=== PATIENT | female | born 2000 ===

== ENCOUNTER 2025-05-01 11:10 | Emergency (ER) | payer OTHER, SELFPAY ==
--- NOTE | ~2025-05-01 | CT_ITS ---
CT ABDOMEN AND PELVIS WITHOUT CONTRAST Clinical History: right flank pain Comparison: None Technique: Unenhanced axial images lung bases to symphysis pubis Coronal, sagittal reformats CT images acquired with automatic exposure control for dose reduction DLP: 469 mGy-cm Findings: Without intravenous contrast, sensitivity for detecting visceral parenchymal abnormalities decreased. Lung bases: Clear. Visualized heart and pericardium: Unremarkable. Liver: Unremarkable. Gallbladder: Unremarkable. Spleen: Unremarkable. Pancreas: Unremarkable. Adrenal glands: Unremarkable. Kidneys: Right kidney- No hydronephrosis. No renal stones. Left kidney- No hydronephrosis. No renal stones. Distal esophagus/stomach: Unremarkable. Small bowel loops: Normal caliber and wall thickness. Colon: Normal caliber and wall thickness. Normal RLQ appendix. Nodes: No enlarged nodes. A few small lymph nodes right lower quadrant Peritoneum: No ascites. No free intraperitoneal air. Urinary bladder: Unremarkable. Uterus: Unremarkable. Adnexa: Right side 4.5 cm. Bones: No acute bony abnormality. Soft tissues: Unremarkable. Unopacified abdominal aorta: No aneurysmal dilatation. IMPRESSION: 1. No acute findings. 2. Prominent right adnexa. Recommend transvaginal sonography. Reviewed, dictated and finalized at location R. INE OVERHAULER
--- NOTE | ~2025-05-01 | US_ITS ---
EXAM/PROCEDURE: US pelvic complete HISTORY: Prominent right adnexa COMPARISON: CT exam from same date TECHNIQUE: Pelvic ultrasound performed with transabdominal technique. Sonographic windows were limited due to overlying bowel gas. FINDINGS: The uterus measures 5.6 x 2.6 x 4.3 cm and appears normal Endometrial stripe: 4.3 mm Right ovary: 3.8 x 2.3 x 3.9 cm. The right ovary appears normal in echotexture and vascular flow. The left ovary is not visualized No mass or free fluid seen in the images labeled left adnexa. IMPRESSION: 1. No suspicious finding in the right adnexal region. The right ovary appears normal. 2. Nonvisualization of left ovary. Reviewed, dictated and finalized at location A. ASOUND SPECIALIST IMPRESSION: 1. No suspicious finding in the right adnexal region. The right ovary appears n ormal. 2. Nonvisualization of left ovary.
[2025-05-01 11:13] VITALS: BP 121/76; PULSE 72; RESP 16; TEMP 36.6; O2SAT 100
[2025-05-01 11:27] LABS: BEDSIDEPREGUCG Negative (Negative)
[2025-05-01 11:38] LABS: Hematocrit 40.4 % (37.0-47.0); Hemoglobin 12.9 g/dL (12.0-15.0); Immature Granulocyte Percent A 0.3 % (0-0.5); Lymphocytes Absolute Auto 3.25 K/mm3 (0.9-3.2); Mean Corpuscular HGB Conc 31.9 g/dl (32-36); Mean Corpuscular Hemoglobin 28.0 pg (26-34); Mean Corpuscular Volume 87.6 fl (80-100); Nucleated Red Blood Cells Absolute Auto 0.000 K/mm3 (0.0-0.012); Nucleated Red Blood Cells Perc 0.0 % (0.0-0.2); Platelet Count Result 440 k/mm3 (150-375); Red Blood Count 4.61 M/mm3 (4.2-5.4); White Blood Count 8.9 K/mm3 (4.5-10.0)
[2025-05-01 11:41] LABS: Add Urine Microscopic? YES; Appearance Urine Clear (Clear); Glucose Urine UA Negative (Negative); Leukocyte Esterase Ur Negative LEU/UL (Negative); Nitrate Urine Negative (Negative); Non Pathogenic Casts 0-2; Specific Grav Ur 1.006 (1.001-1.035)
[2025-05-01 11:48] LABS: Alanine Aminotransferase 14 U/L (6-35); Albumin Level 4.6 g/dL (3.5-5.1); Alkaline Phosphatase 87 U/L (38-126); Anion Gap 8 mmol/L (4-12); Aspartate Amino Transferase 31 U/L (14-36); Bilirubin,Total 0.6 mg/dL (0.2-1.3); Blood Urea Nitrogen 7 mg/dL (7-17); Calcium 8.9 mg/dL (8.4-10.2); Carbon Dioxide 28 mmol/L (22-30); Chloride 102 mmol/L (98-107); Estimated Glomerular Filt Rate > 60; Glucose 96 mg/dL (65-110); Lipase 27 U/L (23-300); Potassium 3.9 mmol/L (3.4-5.0); Sodium 138 mmol/L (137-145); Total Protein 8.4 g/dL (6.3-8.2)
--- NOTE | 2025-05-01 12:53 | ED_ITS ---
HPI - General Adult General Chief complaint: Abdominal Pain Stated complaint: right flank pain Time Seen by Provider: 05/01/25 12:20 History of Present Illness HPI narrative: 24-year-old female presented to the emergency department for evaluation for right flank pain that is been ongoing for the last 3 days. Patient did have some associated nausea with this. Patient describes right flank pain that radiates down to her right lower quadrant. Patient denies any specific pain with urination but states the right flank pain did worsen after urination. [facility] and was noted to have some hematuria. Patient denies any prior history kidney stones but states she does have a family history. Patient is well-appearing at time of evaluation. Related Data Allergies Allergy/AdvReac Type Severity Reaction Status Date / Time No Known Allergies Allergy Verified 05/01/25 11:15 Review of Systems 2 Review of Systems: All systems reviewed & are unremarkable except as noted in HPI and below Exam 2 Narrative: APPEARANCE: Well appearing, no pain, no distress, well-nourished. HEAD: normocephalic, atraumatic. EYES: PERRLA/EOMI, conjunctivae clear. NOSE: Normal no drainage EARS:TMS clear with good light reflex. THROAT: Pharynx clear, no exudate. NECK: Supple. No adenopathy, no masses. RESPIRATORY: Airway patent, respirations nonlabored. Clear to auscultation bilaterally, no rales, rhonchi, wheezing. CARDIOVASCULAR: Regular rate and rhythm without murmurs rubs or gallops. ABDOMINAL: Right CVA tenderness to palpation, right lower quadrant tenderness to palpation, normal bowel sounds, no evidence of peritonitis MUSCULOSKELETAL: Moves all extremities. Strength/ROM intact, No edema, No calf tenderness. NEURO: Alert. Cranial nerves II through XII intact. Good gait. Good coordination SKIN: Warm, dry. Normal Color Course Vital Signs Vital signs: Vital Signs Temperature 97.9 F 05/01/25 11:13 Pulse Rate 72 05/01/25 11:13 Respiratory Rate 16 05/01/25 11:13 Blood Pressure 121/76 05/01/25 11:13 Pulse Oximetry 100 05/01/25 11:13 Oxygen Delivery Room Air 05/01/25 11:13 Temperature 97.9 F 05/01/25 11:13 Pulse Rate 72 05/01/25 15:57 Respiratory Rate 14 05/01/25 15:57 Blood Pressure 124/68 05/01/25 15:57 Pulse Oximetry 99 05/01/25 15:57 Oxygen Delivery Room Air 05/01/25 11:13 Medical Decision Making MDM Narrative Medical decision making narrative: 24-year-old female present to the emergency department for evaluation for right flank pain. Patient is currently afebrile with no leukocytosis hemoglobin of 12.9. Patient has normal kidney function. Patient has no evidence of urinary tract infection and no hematuria. Patient's urine preg was negative. Patient was provided oral Tylenol for pain control. CT scan without contrast was ordered to evaluate for ureteral calculi. CT was negative for acute pathology but was concerned about some abnormality in the right adnexa and ultrasound was requested. On pelvic ultrasound no abnormalities were noted with the right ovary. Patient was updated the results of her workup. Patient was advised to take scheduled anti-inflammatories to help with potential back pain an inflammatory process such as mesenteric adenitis. Patient was also educated reasons to return to the emergency department. All questions were addressed patient was well-appearing at time of discharge. Differential Diagnosis Differential Diagnosis: Colitis, diverticulitis, UTI, ureteral calculi, ovarian torsion, ovarian cyst Vital Signs Vital Signs: Vital Signs Temperature 97.9 F 05/01/25 11:13 Pulse Rate 72 05/01/25 11:13 Respiratory Rate 16 05/01/25 11:13 Blood Pressure 121/76 05/01/25 11:13 Pulse Oximetry 100 05/01/25 11:13 Oxygen Delivery Room Air 05/01/25 11:13 Temperature 97.9 F 05/01/25 11:13 Pulse Rate 72 05/01/25 15:57 Respiratory Rate 14 05/01/25 15:57 Blood Pressure 124/68 05/01/25 15:57 Pulse Oximetry 99 05/01/25 15:57 Oxygen Delivery Room Air 05/01/25 11:13 Lab Data Lab results reviewed: Yes I reviewed the patient's lab results. 05/01/25 11:29 05/01/25 11:29 Labs: Lab Results 05/01/25 05/01/25 Range/Units 11: 11:29 WBC 8.9 (4.5-10.0) K/mm3 RBC 4.61 (4.2-5.4) M/mm3 Hgb 12.9 (12.0-15.0) g/dL Hct 40.4 (37.0-47.0) % MCV 87.6 (80-100) fl MCH 28.0 (26-34) pg MCHC 31.9 L (32-36) g/dl RDW 12.6 (11.5-14.5) % Plt Count 440 H (150-375) k/mm3 MPV 9.7 (7.4-10.4) fl Immature Gran % (Auto) 0.3 (0-0.5) % Neut % (Auto) 57.4 (45.5-73.1) % Lymph % (Auto) 36.6 (18.3-44.2) % [place] % (Auto) 3.3 (2.6-8.5) % Eos % (Auto) 1.6 (0-4.4) % Baso % (Auto) 0.8 (0.2-1.2) % Lymph # (Auto) 3.25 H (0.9-3.2) K/mm3 Mckenzie # (Auto) 0.3 (0.1-0.6) K/mm3 Eos # (Auto) 0.1 (0-0.3) K/mm3 Baso # (Auto) 0.1 (0.0-0.1) K/mm3 Abs Immat Gran (auto) 0.03 (0.00-0.031) K/mm3 Absolute Neuts (auto) 5.1 (1.3-6.7) K/mm3 Absolute Nucleated RBC 0.000 (0.0-0.012) K/mm3 Nucleated RBC % 0.0 (0.0-0.2) % Sodium 138 (137-145) mmol/L Potassium 3.9 (3.4-5.0) mmol/L Chloride 102 (98-107) mmol/L Carbon Dioxide 28 (22-30) mmol/L Anion Gap 8 (4-12) mmol/L BUN 7 (7-17) mg/dL Creatinine 0.59 L (0.7-1.0) mg/dL Estim Creat Clear Calc Not Reportable Estimated GFR > 60 (59 - ) Glucose 96 (65-110) mg/dL Calcium 8.9 (8.4-10.2) mg/dL Total Bilirubin 0.6 (0.2-1.3) mg/dL AST 31 (14-36) U/L ALT 14 (6-35) U/L Alkaline Phosphatase 87 (38-126) U/L Total Protein 8.4 H (6.3-8.2) g/dL Albumin 4.6 (3.5-5.1) g/dL Lipase 27 (23-300) U/L Urine Color Yellow (Yellow) Urine Appearance Clear (Clear) Urine pH 6.5 (5.0-9.0) Ur Specific [place] 1.006 (1.001-1.035) Urine Protein Negative (Negative) mg/dL Urine Glucose (UA) Negative (Negative) mg/dL Urine Ketones Negative (Negative) mg/dL Ur Blood (Man) Trace (Negative) Urine Nitrate Negative (Negative) Urine Bilirubin Negative (Negative) Urine Urobilinogen 0.2 (<2.0) mg/dL Leukocyte Esterase Rfl Negative (Negative) SARAH/UL Urine RBC 0-2 (0-2) /hpf Urine WBC 0-5 (0-3) /hpf Ur Squamous Epith Cells None seen (Few) /hpf Urine Bacteria None seen /hpf Urine Casts 0-2 POC Urine HCG, Qual Negative (Negative) Imaging Data Radiologist's impression: Impressions Abdomen/Pelvis CT 05/01/25 13:00 IMPRESSION: 1. No acute findings. 2. Prominent right adnexa. Recommend transvaginal sonography. Pelvis Ultrasound 05/01/25 15:15 IMPRESSION: 1. No suspicious finding in the right adnexal region. The right ovary appears normal. 2. Nonvisualization of left ovary. Discharge Plan Discharge Clinical Impression: Acute right flank pain Patient Disposition: Home Condition: Stable Instructions: Antibiotic Form, Abdominal Pain (ED) Additional Instructions: Tylenol for pain control. Scheduled ibuprofen for the next 3-5 days to help with anti inflammation. Have close follow-up with your primary care physician. If you have any worsening symptoms please call or return to the emergency department. Patient Language: Divehi Follow-up/Referrals: PHYSICIAN,DEVELOPING MACHINE OPERATOR [Primary Care Provider, Internal Medicine]
[2025-05-01] MEDS: ACETAMINOPHEN 500 MG TABLET 1000 MG PO (13:18)
[2025-05-01 15:57] VITALS: BP 124/68; PULSE 72; RESP 14; O2SAT 99
== END 2025-05-01 15:58 | disposition home or self-care (01) ==
PROVIDERS: Emergency Medicine; Emergency Provider Emergency Medicine
DX: R10.A1 Flank pain, right side (principal)
CPT/HCPCS: 36415; 74176; 76856; 80053; 81001; 81025; 83690; 85025; 99284; A9270